=== PATIENT | male | born 1945 | race Caucasian/White ===

== ENCOUNTER 2017-11-25 09:06 | Inpatient (IN) | payer BC ==
[~2017-11-25 09:06] MED LIST: EPHEDrine SULFATE 50 MG/5 ML SYG; SUCCINYLCHOLINE CHLORIDE 100 MG/5 ML SYG IV
[2017-11-25] MEDS ORDERED: LIDOCAINE 2% (SDV) 5 ML INJ (10:32)
[2017-11-25] MEDS ORDERED: PROPOFOL 0 ML (10:32)
[2017-11-25] MEDS ORDERED: MIDAZOLAM 1 MG/ML 2 ML INJ (10:32)
[2017-11-25] MEDS ORDERED: FENTAnyl 50 MCG/ML VIAL (10:39)
[2017-11-25] MEDS ORDERED: PHENYLephrine (100 MCG/ML) 5ML SYG (10:55)
[2017-11-25] MEDS: TRANEXAMIC ACID 1,000 MG in DEXTROSE 5% 100 ML IV ×2 (11:00→13:00)
[2017-11-25] MEDS ORDERED: PROPOFOL 100 ML (11:05)
[2017-11-25] MEDS ORDERED: CEFAZOLIN 1 GM INJ (11:06)
[2017-11-25] MEDS ORDERED: ONDANSETRON 4 MG INJ (11:07)
[2017-11-25] MEDS ORDERED: FAMOTIDINE 20 MG INJ (11:07)
[2017-11-25] MEDS ORDERED: DEXAMETHASONE 4 MG/ML 1 ML INJ (11:07)
[2017-11-25] MEDS: CEFAZOLIN 2 GM/50 ML (PMX) 50 ML IVPB (11:08)
[2017-11-25] MEDS: BACITRACIN 50000 UNITS INJ IRR (13:17)
[2017-11-25] MEDS: POLYMYXIN B 500000 UNIT INJ (13:27)
[2017-11-25] MEDS ORDERED: ZOLPIDEM 5 MG TAB PO (13:30)
[2017-11-25] MEDS ORDERED: NALOXONE (0.4 MG/ML) INJ IV (13:30)
[2017-11-25] MEDS ORDERED: NACL 0.9% 3 ML SYG IV (13:30)
[2017-11-25] MEDS ORDERED: DIPHENHYDRAMINE 50 MG INJ IM (13:30)
[2017-11-25] MEDS ORDERED: BETHANECHOL 25 MG TAB PO (13:30)
[2017-11-25] MEDS ORDERED: SENNA/DOCUSATE NA (8.6MG/50MG) TAB PO (13:30)
[2017-11-25] MEDS ORDERED: oxyCODONE 5 MG TAB PO ×2 (13:30)
[2017-11-25] MEDS ORDERED: NA PHOSPHATE/BIPHOS 133 ML ENEMA PR (13:30)
[2017-11-25] MEDS ORDERED: MAGNESIUM HYDROXIDE 30ML CUP PO (13:30)
[2017-11-25] MEDS ORDERED: BISACODYL 10 MG SUPP PR (13:30)
[2017-11-25] MEDS: POLYMYXIN/BACITRACIN 1L IRRIG IRR (13:37)
[2017-11-25] MEDS ORDERED: DIPHENHYDRAMINE 50 MG INJ IV (14:00)
[2017-11-25] MEDS ORDERED: MEPERIDINE 25 MG INJ IV (14:00)
[2017-11-25] MEDS ORDERED: FENTAnyl 50 MCG/ML VIAL IV (14:00)
[2017-11-25] MEDS ORDERED: ONDANSETRON 4 MG INJ IV (14:00)
[2017-11-25] MEDS ORDERED: HYDROmorphONE (0.2 MG/ML) 10ML SYG IV (14:00)
[2017-11-25] MEDS ORDERED: PROCHLORPERAZINE 10 MG INJ IV (14:00)
[2017-11-25] MEDS: ONDANSETRON 4 MG INJ IV ×2 (14:27→19:30)
[2017-11-25] MEDS: DOCUSATE SODIUM 100 MG CAP PO (14:27)
[2017-11-25] MEDS: ASPIRIN (EC) 325 MG TAB PO (14:27)
[2017-11-25] MEDS: CEFAZOLIN 1 GM/50 ML (PMX) 50 ML IVPB ×2 (14:27→21:32)
[2017-11-25] MEDS ORDERED: POLYMYXIN/BACITRACIN 1L IRRIG (14:28)
[2017-11-25] MEDS: SOD CHLORIDE 0.9% 1,000 ML IV (14:28)
[2017-11-25] MEDS ORDERED: BACITRACIN 50000 UNITS INJ (14:28)
[2017-11-25] MEDS ORDERED: HALOPERIDOL 5 MG INJ IM (16:30)
[2017-11-25] MEDS ORDERED: ALBUTEROL HFA 8 GM INHALER INH (23:00)
[2017-11-26] MEDS: ONDANSETRON 4 MG INJ IV ×2 (01:30→07:30)
[2017-11-26] MEDS: SOD CHLORIDE 0.9% 1,000 ML IV ×2 (02:25→14:27)
[2017-11-26] MEDS: oxyCODONE 5 MG TAB PO (03:08)
[2017-11-26 05:07] LABS: ADD MAN DIFF? NO
[2017-11-26 05:12] LABS: BASOPHILS % 0.2 % (0.0-2.0); LYMPHOCYTES # 1.1 10^3/ul (0.8-2.9); NEUTROPHIL # 3.7 10^3/ul (1.6-7.5); POSITIVE DIFF @See below; RED CELL DISTRIBUTION WIDTH 12.6 % (11.5-14.5)
[2017-11-26 05:12] LABS: WHITE BLOOD COUNT 5.5 10^3/ul (4.8-10.8)
[2017-11-26] MEDS: CEFAZOLIN 1 GM/50 ML (PMX) 50 ML IVPB (05:17)
[2017-11-26] MEDS: PANTOPRAZOLE (EC) 40 MG TAB PO (05:17)
[2017-11-26 05:36] LABS: HEMATOCRIT 27.8 % (42.0-52.0); HEMOGLOBIN 9.1 g/dl (14.0-18.0); MEAN CORPUSCULAR VOLUME 92.7 fl (82.0-101.0)
[2017-11-26 05:37] LABS: LYMPHOCYTES % 19.4 % (15.0-51.0); MEAN CORPUSCULAR HEMOGLOBIN 30.3 pg (29.0-33.0); MEAN CORPUSCULAR HGB CONC 32.7 g/dl (32.0-37.0); MEAN PLATELET VOLUME 10.5 fl (7.4-10.4); MONOCYTE # 0.6 10^3/ul (0.3-0.9); MONOCYTES % 11.7 % (0.0-11.0); NEUTROPHILS % 68.3 % (39.0-77.0); PLATELET COUNT 134 10^3/UL (140-415)
[2017-11-26 05:46] LABS: ANION GAP 11 (8-16); BLOOD UREA NITROGEN 15 mg/dl (7-20); CALCIUM 8.1 mg/dl (8.4-10.2); CARBON DIOXIDE 27 mmol/L (21-31); CHLORIDE 106 mmol/L (97-110); CREATININE 0.97 mg/dl (0.61-1.24); GLUCOSE 122 mg/dl (70-220); POTASSIUM 4.1 mmol/L (3.5-5.1); SODIUM 140 mmol/L (135-144)
[2017-11-26] MEDS ORDERED: KETOROLAC 15 MG INJ IV (06:00)
[2017-11-26] MEDS: DOCUSATE SODIUM 100 MG CAP PO (08:27)
[2017-11-26] MEDS: ASPIRIN (EC) 325 MG TAB PO (08:27)
[2017-11-26] MEDS: CELECOXIB 200 MG CAP PO (08:27)
[2017-11-26] MEDS: FERROUS FUMARATE (SR) TAB PO (08:28)
== END 2017-11-26 17:25 | DRG 469 ==
LOC: REC 09:06 → MS1 17:50
PROVIDERS: Orthopaedic Surgery
PROC: 0SR902A Replacement of Right Hip Joint with Metal on Polyethylene Synthetic Substitute, Uncemented, Open Approach (ICD-10-PCS; principal; 2017-11-25 10:23)
DX: M16.11 Unilateral primary osteoarthritis, right hip (principal); G93.49 Other encephalopathy; G30.9 Alzheimer's disease, unspecified; F02.80 Dementia in other diseases classified elsewhere, unspecified severity, without behavioral disturbance, psychotic disturbance, mood disturbance, and anxiety; Z85.46 Personal history of malignant neoplasm of prostate; F32.9 Major depressive disorder, single episode, unspecified
CPT/HCPCS: 73530; 80048; 85025; 86850; 86900; 86901; 87081; 87086; 88304; 88311; 97116; 97167